=== PATIENT | female | born 1990 | race Two or more races ===

== ENCOUNTER 2024-02-01 04:46 | Inpatient (IN) | payer OTHER, SELFPAY ==
[2024-01-30 13:58] LABS: Amphetamine Screen, Urine Neg (NEGATIVE)
[2024-01-30 13:59] LABS: Benzodiazephine Screen, Urine Neg (NEGATIVE); Cannabinoid Screen, Urine Neg (NEGATIVE); Cocaine Screen, Urine Neg (NEGATIVE); Opiate Scree,Urine Neg (NEGATIVE); Phencyclidine Screen, Urine Neg (NEGATIVE)
[2024-01-30 14:02] LABS: Albumin 3.6 g/dL (3.2-4.8); Alkaline Phosphatase 167 U/L (46-116); Anion Gap 6 (5-15); Aspartate Aminotransferase 9 U/L (13-40); BUN/Creatinine Ratio 17.5 (10.0-20.0); Bilirubin, Total 0.4 mg/dL (0.2-1.0); Blood Urea Nitrogen 7 mg/dL (9-23); Carbon Dioxide 23 mmol/L (20-30); Chloride 108 mmol/L (98-107); Glucose 104 mg/dL (74-106); Potassium 3.5 mmol/L (3.5-5.1); Sodium 137 mmol/L (136-145); Total Protein 6.1 g/dL (5.7-8.2)
[2024-01-30 14:03] LABS: Urine Bacteria FEW /hpf (None Seen); Urine Blood Negative /uL (Negative); Urine Clarity Turbid (Clear); Urine Mucus FEW (None Seen); Urine Protein, UAD 1+ (Negative); Urine Specific Gravity 1.026 (1.001-1.035); Urine Urobilinogen Normal (Negative); Urine WBC 4 /hpf (0 - 5)
[2024-01-30 14:05] LABS: Basophils # (auto) 0 10 ^3/uL (0-0.2); Basophils % (auto) 0.3 % (0.0-2.0); Eosinophils # (auto) 0.1 10 ^3/uL (0-0.8); Eosinophils % (auto) 1.3 % (0.0-7.0); Hematocrit 34.6 % (36.0-46.0); Hemoglobin 11.7 g/dL (12.2-16.2); Lymphocytes # (auto) 1.1 10 ^3/uL (0.4-5.4); Lymphocytes % (auto) 15.7 % (10.0-50.0); Mean Corpuscular Hemoglobin 30.4 pg (28.0-32.0); Mean Corpuscular Hgb Conc. 33.8 g/dL (32.0-36.0); Mean Corpuscular Volume 89.8 fL (80.0-100.0); Monocytes # (auto) 0.7 10 ^3/uL (0-1.3); Monocytes % (auto) 9.6 % (0.0-12.0); Neutrophils % (auto) 73.1 % (37.0-80.0); Nucleated Red Blood Cells % 0.1 %; Platelet Count (auto) 291 10^3/uL (140-450); Red Blood Cells 3.85 10^6/uL (4.0-5.20); White Blood Cell 6.8 10^3/uL (4.4-10.8)
[2024-01-30 14:07] LABS: INR 0.9 (0.9-1.15); Partial Thromboplastin Time 25.2 SEC (24.5-34.5); Prothrombin Time 9.6 sec (9.3-11.8)
[2024-01-30 14:10] LABS: Urine Color Light-Yellow (Yellow)
[2024-01-30 14:16] LABS: Alanine Aminotransferase 9 U/L (7-40)
[2024-01-30 14:44] LABS: Barbiturate Scree,Urine Neg (NEGATIVE)
[2024-01-31 08:06] LABS: RPR Non Reactive (Non Reactive)
[~2024-02-01] VITALS: Ht 157.5 cm; Wt 81.6 kg
[2024-02-01] VITALS (14 sets, daily range): BP systolic 91–137; BP diastolic 42–66; PULSE 56–87; RESP 16–20; TEMP 98–98.4; O2SAT 95–98
[2024-02-01] MEDS: LACTATED RINGER'S 1,000 ML IV ONE (05:54)
[2024-02-01] MEDS: ceFAZolin 2 GM/D5W50ml 50 ML IV ONE (06:38)
[2024-02-01] MEDS: LACTATED RINGER'S 1,000 ML IV SCH (06:38)
[2024-02-01] MEDS ORDERED: MORPHINE SULF PF 5 MG/10 ML VIAL ONE (06:59)
[2024-02-01] MEDS ORDERED: fentaNYL CITRATE 100 MCG/2 ML VL ONE (06:59)
[2024-02-01] MEDS ORDERED: ePHEDrine SULFATE 50 MG/ML AMP ONE (07:01)
[2024-02-01] MEDS ORDERED: ONDANSETRON HCL 4 MG/2 ML VIAL ONE (07:01)
[2024-02-01] MEDS ORDERED: GLYCOPYRROLATE 0.2 MG/ML 1ML VIAL ONE (07:01)
[2024-02-01] MEDS ORDERED: PHENYLEPHRINE HCL 10 MG/ML VL ONE (07:01)
[2024-02-01] MEDS ORDERED: oxyTOCIN 10 UNIT/ML 10ML VIAL ONE (07:01)
[2024-02-01] MEDS ORDERED: KETOROLAC TROMETH 30 MG/ML 1ML VIAL ONE (07:01)
[2024-02-01] MEDS ORDERED: DOCU-94 PO (07:10)
[2024-02-01] MEDS ORDERED: IBUP-1456 PO (07:10)
[2024-02-01] MEDS ORDERED: HYDR-4902 PO (07:10)
[2024-02-01] MEDS ORDERED: ONDANSETRON HCL 4 MG/2 ML VIAL IV PRN ×2 (07:15→09:00)
[2024-02-01] MEDS: FAMOTIDINE (10MG/ML) 2ML VL IV SCH (08:55)
[2024-02-01] MEDS ORDERED: diphenhdrAMINE HCL 50 MG/1 ML VL IV PRN (09:00)
[2024-02-01] MEDS ORDERED: NALOXONE HCL 0.4 MG/ML VIAL IV PRN (09:00)
[2024-02-01] MEDS ORDERED: DexAMETHasone SOD PHOS 10MG/1ML VIAL INJ IV PRN (09:00)
[2024-02-01] MEDS ORDERED: KETOROLAC TROMETH 30 MG/ML 1ML VIAL IV PRN (09:00)
[2024-02-01] MEDS: FAMOTIDINE (10MG/ML) 2ML VL IV ONE (09:16)
[2024-02-01] MEDS: LACT. RINGERS/OXYTOCIN 20UNITS 1,000 ML IV ONE (09:30)
[2024-02-01] MEDS ORDERED: METOCLOPRAMIDE HCL 5MG/ml INJ 2ml VIAL IV PRN (11:00)
[2024-02-01] MEDS: ACETAMINOPHEN IV 1000 MG/100ML (10MG/ML) IV PRN (12:44)
[2024-02-01] MEDS ORDERED: ceFAZolin 1GM/50ML 50 ML IV SCH ×2 (14:00→15:00)
[2024-02-01] MEDS: ceFAZolin 1GM/50ML 50 ML IV SCH (17:42)
[2024-02-01] MEDS: GUM (CHEWING) 1 GUM CHEW CHEW ONE (17:55)
[2024-02-01] MEDS: ONDANSETRON HCL 4 MG/2 ML VIAL IV ONE (17:57)
[2024-02-01 21:13] LABS: Basophils # (auto) 0 10 ^3/uL (0-0.2); Basophils % (auto) 0.1 % (0.0-2.0); Eosinophils # (auto) 0 10 ^3/uL (0-0.8); Hemoglobin 10.2 g/dL (12.2-16.2); Lymphocytes # (auto) 1.1 10 ^3/uL (0.4-5.4); Lymphocytes % (auto) 10.6 % (10.0-50.0); Mean Corpuscular Hemoglobin 29.3 pg (28.0-32.0); Mean Corpuscular Hgb Conc. 32.8 g/dL (32.0-36.0); Mean Corpuscular Volume 89.3 fL (80.0-100.0); Monocytes # (auto) 0.7 10 ^3/uL (0-1.3); Monocytes % (auto) 6.6 % (0.0-12.0); Neutrophils % (auto) 82.7 % (37.0-80.0); Platelet Count (auto) 276 10^3/uL (140-450); Red Blood Cells 3.47 10^6/uL (4.0-5.20); Red Cell Distribution Width 15.2 % (11.8-14.3); White Blood Cell 10.9 10^3/uL (4.4-10.8)
[2024-02-02] VITALS (12 sets, daily range): BP systolic 91–107; BP diastolic 35–52; PULSE 65–83; RESP 16–17; TEMP 97.7–99.4; O2SAT 94–98
[2024-02-02] MEDS: ceFAZolin 1GM/50ML 50 ML IV SCH (00:45)
[2024-02-02] MEDS ORDERED: BISACODYL 10 MG RECT SUPP PR PRN (07:45)
[2024-02-02] MEDS: IBUPROFEN 800 MG TAB PO PRN (08:28)
[2024-02-02 08:55] LABS: Basophils # (auto) 0 10 ^3/uL (0-0.2); Basophils % (auto) 0.3 % (0.0-2.0); Eosinophils # (auto) 0 10 ^3/uL (0-0.8); Eosinophils % (auto) 0.3 % (0.0-7.0); Hematocrit 28.7 % (36.0-46.0); Hemoglobin 9.6 g/dL (12.2-16.2); Lymphocytes # (auto) 1.2 10 ^3/uL (0.4-5.4); Lymphocytes % (auto) 14.9 % (10.0-50.0); Mean Corpuscular Hemoglobin 29.9 pg (28.0-32.0); Mean Corpuscular Hgb Conc. 33.4 g/dL (32.0-36.0); Mean Corpuscular Volume 89.8 fL (80.0-100.0); Monocytes # (auto) 0.7 10 ^3/uL (0-1.3); Monocytes % (auto) 9.2 % (0.0-12.0); Neutrophils # (auto) 6.1 10 ^3/uL (1.6-8.6); Neutrophils % (auto) 75.3 % (37.0-80.0); Platelet Count (auto) 254 10^3/uL (140-450); Red Cell Distribution Width 15.6 % (11.8-14.3); White Blood Cell 8.1 10^3/uL (4.4-10.8)
[2024-02-02] MEDS: DOCUSATE CALCIUM 240 MG CAP PO SCH (09:35)
[2024-02-02] MEDS: DOCUSATE SOD 100 MG CAP PO SCH (09:35)
[2024-02-02] MEDS: HYDROcodone-ACET 5/325MG TAB PO PRN ×2 (12:14→23:15)
[2024-02-02] MEDS: SIMETHICONE 80 MG CHEWABLE TABLET PO SCH (12:14)
[2024-02-03 03:00] VITALS: BP 98/40; PULSE 71; RESP 16; TEMP 98.7; O2SAT 95
[2024-02-03 06:40] VITALS: PULSE 74; RESP 18
[2024-02-03 07:00] VITALS: BP 95/46; PULSE 74; RESP 18; TEMP 97.9; O2SAT 98
[2024-02-03] MEDS: MEASLES, MUMPS & RUBELLA VAC(MMRII) 0.5ML SC ONE (08:23)
[2024-02-03 11:00] VITALS: BP 100/48; PULSE 72; RESP 17; TEMP 98.1; O2SAT 95
== END 2024-02-03 11:04 | disposition home or self-care (01) | DRG 788 ==
LOC: LDRP 04:46
PROVIDERS: ADMIT Obstetrics & Gynecology; ATTEND Obstetrics & Gynecology
PROC: 10D00Z1 Extraction of Products of Conception, Low, Open Approach (ICD-10-PCS; principal; 2024-02-01 07:12)
DX: O34.211 Maternal care for low transverse scar from previous cesarean delivery (principal); O69.81X0 Labor and delivery complicated by cord around neck, without compression, not applicable or unspecified; Z37.0 Single live birth; Z3A.38 38 weeks gestation of pregnancy; O32.1XX0 Maternal care for breech presentation, not applicable or unspecified; O99.214 Obesity complicating childbirth; E66.01 Morbid (severe) obesity due to excess calories
CPT/HCPCS: 36415; 59025; 80053; 80307; 81001; 85025; 85610; 85730; 86592; 86703; 86803; 86850; 86900; 86901; 94760; 94762; 96361; 96372; 96374; 96375; G0378; J0131; J1885; J2405; J2590; J3490